=== PATIENT | male | born 1955 | race Caucasian/White ===

== ENCOUNTER → 2018-01-21 | Outpatient (CLI) | payer OTHER ==
--- NOTE | 2018-01-21 15:02 | EXE ---
[place] [address] STRESS ECHOCARDIOGRAM Name: DIONTETROY LINK Room: [facility]#: [id number] Admission: 01/21/18 Attend Phys: Clint Hawk MD Discharge: Date of : 55 Date of Service: 01/21/18 1501 Report #: [id number] THIS REPORT FOR: //name// APPROVED REPORT Study performed: 01/21/2018 11:38:17 Exam: Stress Echocardiogram Indication: Dyspnea , Hypertension Patient Location: Out-Patient Stress Nurse: Sheryl Smallwood RN Supervising Physician: George Loaiza MD Ht: 5 ft 9 in HR: 101 bpm BP: 139/62 mmHg Medical History Cardiac Risk Factors: Hyperlipidemia, HTN Procedure The patient underwent an Exercise Stress Test using the Delbert Protocol. Blood pressure, heart rate, and EKG were monitored. An Echocardiogram was performed by groundwater monitoring technician in four stages in quad fashion. At peak stress, four selected images were obtained and placed side by side with resting images for comparison. Stress Test Details Stress Test: Exercise stress testing was performed using a Delbert protocol. HR Resting HR: 101 bpm Max Heart Rate (APMHR): 158 bpm Max HR Achieved: 158 bpm Target HR (85% APMHR): 134 bpm % of APMHR: 100 Recovery HR: 101 bpm HR response to stress: Normal HR response to stress BP Resting BP: 139/62 mmHg Max BP: 158/64 mmHg Recovery BP: 133/65 mmHg ECG Resting ECG: Sinus Rhythm, nonspecific [place] [address] STRESS ECHOCARDIOGRAM Name: TROY ARPP Room: [facility]#: [id number] Admission: 01/21/18 Attend Phys: Clint Hawk MD Discharge: Date of : 55 Date of Service: 01/21/18 1501 Report #: [id number] Stress ECG: Sinus Rhythm, nonspecific ST-T abnormalities ST Change: Upsloping ST depression Maximum ST Deviation: 0.5 mm Recovery ECG: Sinus Rhythm, nonspecific ST-T abnormalities Recovery ST Change: Upsloping ST depression Recovery ST Deviation: 0.5 mm Clinical Reason for Termination: Dyspnea, Completed protocol Exercise duration: 10 min 59 sec Highest Stage Achieved: Stage 4: 4.2 mph at 16% grade. Exercise capacity: 13.4 METs Pre-Stress Echo The resting Echocardiogram showed normal left ventricular contractility with an estimated Ejection Fraction of about 60-65%. Post-Stress Echo The stress Echocardiogram showed normal left ventricular contractility with an estimated Ejection Fraction of about >70%. Conclusion Clinical Response: Non-ischemic Exercise Capacity: Superior Stress ECG Response: Indeterminant Stress Echo Images: Non-ischemic low risk stress echo for future cardiac events Other Information Study Quality: Good <Conclusion> low risk stress echo for future cardiac events <ELECTRONICALLY SIGNED> By: George Loaiza MD, [facility] 01/21/18 1501 1501 150 George Loaiza MD, FACC /INF
== END ==
LOC: M.CRD 10:40
DX: E78.00 Pure hypercholesterolemia, unspecified (principal); R06.00 Dyspnea, unspecified; E78.4 Other hyperlipidemia